=== PATIENT | female | born 1960 | race Caucasian/White ===

== ENCOUNTER → 2018-04-28 | Outpatient (CLI) | payer BC ==
[~2018-04-28] MED LIST: ALB17R INH; DICY10CA11 PO; ESTR-63 TD; IBU200 PO; IBU800 PO; LOR5/325 PO
--- NOTE | 2018-04-28 16:25 | RADIOLOGY IMAGING REPORT ---
FACILITY: [facility] PATIENT NAME: BONIFACIO TEJADA : [id number] MR: [id number] V: [id number] EXAM DATE: ORDERING PHYSICIAN: AUSTIN LEVIN TECHNOLOGIST: Ade Conrad PROCEDURE:BILATERAL DIGITAL SCREENING MAMMOGRAM WITH CAD ASSISTED INTERPRETATION & 3D TOMOSYNTHESIS COMPARISON:Prior mammograms 05/14/17, 05/05/15, 04/01/14. INDICATIONS:SCREENING FINDINGS: The breasts are heterogeneously dense which may obscure small masses. The parenchymal pattern has remained stable allowing for difference in mammographic technique & patient positioning. There is no evidence of malignant appearing mass, malignant appearing calcifications or other secondary sign of malignancy in either breast. DIAGNOSTIC CATEGORY 1--NEGATIVE. RECOMMENDATIONS: ROUTINE MAMMOGRAM AND CLINICAL EVALUATION. IMPRESSION: BIRADS 1: Negative. No significant abnormality is seen. Dictated by: Savita Nolasco M.D. on 04/28/2018 at 15:43 Transcribed by: IAM on 04/28/2018 at 15:56 Approved by: Savita Nolasco M.D. on 04/28/2018 at 16:24 [facility]
--- NOTE | 2018-04-28 16:47 | RADIOLOGY IMAGING REPORT ---
FACILITY: [facility] PATIENT NAME: Sanjuana Salmon : 1960 MR: [id number] V: [id number] EXAM DATE: ORDERING PHYSICIAN: AUSTIN LEVIN TECHNOLOGIST: Location: [facility] [place] Patient: Sanjuana Salmon : 1960 Visit/Account:[id number] Date of Sevice: 04/28/2018 PELVIC HISTORY: Pelvic pain and bleeding x1 month TECHNIQUE: Sagittal and transabdominal ultrasound pelvis. COMPARISON: None. FINDINGS: Patient is status post hysterectomy and bilateral salpingo-oophorectomy. There is no demonstration o f pelvic mass or free pelvic fluid. Free pelvic fluid: None. IMPRESSION: Postsurgical changes from hysterectomy and bilateral salpingo-oophorectomy with no demonstration of a pelvic mass or free pelvic fluid Report Dictated By: Savita Nolasco MD at 04/28/2018 4:40 PM Report E-Signed By: Savita Nolasco MD at 04/28/2018 4:42 PM WSN:[email or web address]
== END ==
LOC: MAMO 00:27
PROVIDERS: ATTEND Family Medicine
DX: Z12.31 Encounter for screening mammogram for malignant neoplasm of breast (principal); R10.2 Pelvic and perineal pain; Z90.710 Acquired absence of both cervix and uterus
CPT/HCPCS: 76856; 77063; 77067